=== PATIENT | female | born 1950 | race Two or more races ===

== ENCOUNTER 2018-04-03 06:04 | Inpatient (IN) | payer OTHER ==
[~2018-04-03] VITALS: Ht 157.5 cm; Wt 83.9 kg
[2018-04-03 08:45] VITALS: BP 141/62
[2018-04-03] MEDS ORDERED: TEMAZEPAM 15 MG CAPSULE PO PRN (10:15)
[2018-04-03] MEDS ORDERED: MAGNESIUM HYDROXIDE 30 ML LIQUID UDC PO PRN (10:15)
[2018-04-03] MEDS ORDERED: HYDROCODONE/APAP 5-325MG TABLET PO PRN (10:15)
[2018-04-03] MEDS ORDERED: ONDANSETRON 4 MG/2 ML VIAL IV PRN (10:15)
[2018-04-03] MEDS ORDERED: Z GUARD REMEDY PASTE 57 GM TUBE TOP PRN (10:15)
[2018-04-03] MEDS ORDERED: MORPHINE SULFATE 2 MG/1 ML DISP.SYRIN IV PRN (10:15)
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
[2018-04-03] MEDS: IV D5 1/2 NS 1000 ML 1,000 ML IV PRN (11:45)
[2018-04-03] MEDS ORDERED: CLONIDINE HCL 0.1 MG TABLET PO PRN (11:45)
[2018-04-03 11:55] VITALS: BP 122/46
[2018-04-03] MEDS ORDERED: SUCR1TAB PO (13:04)
[2018-04-03] MEDS ORDERED: HYDR25TA4 PO (13:04)
[2018-04-03] MEDS ORDERED: BENA20TA9 PO (13:04)
[2018-04-03] MEDS: MORPHINE SULFATE 4 MG/1 ML DISP.SYRIN IV PRN ×2 (13:49→18:24)
[2018-04-03 15:41] VITALS: BP 112/43
[2018-04-03] MEDS: ASPIRIN 81 MG TAB.CHEW PO SCH (18:21)
[2018-04-03 19:00] VITALS: BP 123/43
[2018-04-03] MEDS: DOCUSATE SODIUM 100 MG CAPSULE PO SCH (20:56)
[2018-04-04] VITALS: BP 112/44
[2018-04-04] MEDS: IV D5 1/2 NS 1000 ML 1,000 ML IV PRN (00:10)
[2018-04-04] MEDS: MORPHINE SULFATE 4 MG/1 ML DISP.SYRIN IV PRN ×4 (00:17→22:11)
[2018-04-04 04:00] VITALS: BP 114/44
[2018-04-04 06:29] LABS: BASOPHILS # (AUTO) 0.1 K/uL (0.0-8.0); BASOPHILS % (AUTO) 0.6 % (0.0-2.0); EOSINOPHILS # (AUTO) 0.1 K/uL (0.0-0.7); EOSINOPHILS % (AUTO) 1.3 % (0.0-7.0); HEMATOCRIT 32.9 % (31.2-41.9); HEMOGLOBIN 11.2 g/dL (10.9-14.3); LYMPHOCYTES # (AUTO) 1.6 K/uL (20.0-40.0); LYMPHOCYTES % (AUTO) 16.8 % (20.5-51.5); MEAN CORPUSCULAR HGB CONC 34 g/dL (32.3-35.6); MEAN CORPUSCULAR VOLUME 91.6 fL (75.5-95.3); MONOCYTES # (AUTO) 0.8 K/uL (2.0-10.0); MONOCYTES % (AUTO) 8.4 % (0.0-11.0); NEUTROPHILS # (AUTO) 6.8 K/uL (1.8-8.9); NEUTROPHILS % (AUTO) 72.9 % (38.5-71.5); PLATELET COUNT (AUTO) 201 K/uL (179-408); WHITE BLOOD COUNT (AUTO) 9.3 K/uL (3.8-11.8)
--- NOTE | 2018-04-04 06:36 | NUR ---
END OF SHIFT REPORT PATIENT RESTED WELL IN BETWEEN CARE; NO ACUTE DISTRESS; C/O PAIN AND MEDICATED ACCORDINGLY; VSS, AFEBRILE, DAUGHTER AT BEDSIDE; PT NPO FR MIDNIGHT; PATIENT FOR NUCLEAR STRESS TEST; PICKED UP ALREADY BY AMBULANCE;
[2018-04-04 06:54] LABS: BILIRUBIN,TOTAL 0.6 mg/dL (0.2-1.0); CREATININE 0.7 mg/dL (0.6-1.3); MAGNESIUM 2.1 mg/dL (1.8-2.4); PHOSPHOROUS 3.2 mg/dL (2.5-4.9); POTASSIUM 4.1 mmol/L (3.5-5.1); TOTAL PROTEIN, SERUM 6.2 g/dL (6.4-8.2)
[2018-04-04] MEDS ORDERED: REGADENOSON 0.4 MG/5 ML PREFILLED SYR IV ONE ×2 (09:00→09:49)
[2018-04-04] MEDS: ASPIRIN 81 MG TAB.CHEW PO SCH (09:00)
[2018-04-04] MEDS: PANTOPRAZOLE SODIUM 40 MG VIAL IV SCH (09:00)
[2018-04-04] MEDS ORDERED: METOCLOPRAMIDE HCL 10 MG/2 ML VIAL IV ONE (10:14)
[2018-04-04] MEDS ORDERED: SEVOFLURANE 250 ML BOTTLE IH ONE (10:14)
[2018-04-04] MEDS ORDERED: CEFAZOLIN 1 G VIAL MC ONE (10:14)
[2018-04-04] MEDS ORDERED: ONDANSETRON 4 MG/2 ML VIAL IV ONE (10:14)
[2018-04-04] MEDS ORDERED: IV LACTATED RINGERS SOLUTION 1,000 ML BAG IV ONE (10:14)
[2018-04-04] MEDS ORDERED: PROPOFOL 200 MG/20 ML BOTTLE IV ONE (10:14)
[2018-04-04] MEDS ORDERED: POLYMYXIN B SULFATE 500,000 UNITS, BACITRACIN 50,000 UNITS, NORMAL SALINE 20 ML MC ONE ×3 (10:15)
--- NOTE | 2018-04-04 11:11 | NUR ---
PT ARRIVED FROM [facility].POST STRESS TEST. PT APPEARS CALM, NO SIGNS OF RESPIRATORY DISTRESS, DENIES PAIN AT THIS TIME. AOX4, NOT AMBULATORY AT THIS TIME. CONTINUE TO MONITOR PT.
[2018-04-04 11:22] VITALS: BP 125/45
[2018-04-04] MEDS ORDERED: MIDAZOLAM HCL 2 MG/2 ML VIAL ONE (16:01)
[2018-04-04] MEDS ORDERED: FENTANYL CITRATE 250 MCG/5 ML AMPUL ONE (16:01)
[2018-04-04] MEDS ORDERED: SUCCINYLCHOLINE CHLORIDE 200 MG/10 ML VIAL ONE (16:02)
[2018-04-04] MEDS ORDERED: METOCLOPRAMIDE HCL 10 MG/2 ML VIAL ONE (16:02)
[2018-04-04] MEDS: SUCRALFATE 1 G TABLET PO SCH (16:30)
[2018-04-04] MEDS ORDERED: BENAZEPRIL HCL 20 MG TABLET PO SCH (17:00)
[2018-04-04] MEDS ORDERED: FENTANYL CITRATE 100 MCG/2 ML AMPUL ONE (17:48)
[2018-04-04 18:41] VITALS: BP 133/43
--- NOTE | 2018-04-04 18:50 | NUR ---
PT ARRIVED FROM SURGERY, NO SIGNS OF RESPIRATORY DISTRESS, CALM, RESTING IN BED, C/O PAIN 5/10 BUT STATES SHE DOESN'T NEED MORPHINE AT THIS TIME. PT INCISION SITES ARE CLEAN, NO SWELLING. CONTINUE TO MONITOR PT.
[2018-04-04 18:53] VITALS: BP 137/44
[2018-04-04 19:00] VITALS: BP 121/38
[2018-04-04] MEDS: DOCUSATE SODIUM 100 MG CAPSULE PO SCH ×2 (21:00→22:15)
[2018-04-04] MEDS: BENAZEPRIL HCL 10 MG TABLET PO SCH ×2 (21:00→22:18)
[2018-04-04] MEDS: IV D5W-0.45% NS +20 KCL 1,000 ML IV PRN (21:07)
[2018-04-04] MEDS: CEFAZOLIN 1 G in PREMIXED 1 EACH IV SCH (23:50)
[2018-04-05] VITALS: BP 113/37
[2018-04-05 04:00] VITALS: BP 119/43
[2018-04-05] MEDS: MORPHINE SULFATE 4 MG/1 ML DISP.SYRIN IV PRN ×3 (05:48→13:50)
[2018-04-05 06:48] LABS: BASOPHILS % (AUTO) 0.4 % (0.0-2.0); EOSINOPHILS % (AUTO) 0.2 % (0.0-7.0); HEMATOCRIT 28.8 % (31.2-41.9); HEMOGLOBIN 9.9 g/dL (10.9-14.3); LYMPHOCYTES # (AUTO) 1.3 K/uL (20.0-40.0); LYMPHOCYTES % (AUTO) 11.3 % (20.5-51.5); MEAN CORPUSCULAR HEMOGLOBIN 31.9 uug (24.7-32.8); MEAN CORPUSCULAR HGB CONC 34 g/dL (32.3-35.6); MEAN CORPUSCULAR VOLUME 92.9 fL (75.5-95.3); MONOCYTES # (AUTO) 1.1 K/uL (2.0-10.0); MONOCYTES % (AUTO) 9.6 % (0.0-11.0); NEUTROPHILS % (AUTO) 78.5 % (38.5-71.5); PLATELET COUNT (AUTO) 165 K/uL (179-408); WHITE BLOOD COUNT (AUTO) 11.5 K/uL (3.8-11.8)
[2018-04-05 06:52] LABS: CREATININE 0.6 mg/dL (0.6-1.3); POTASSIUM 4.3 mmol/L (3.5-5.1)
--- NOTE | 2018-04-05 06:53 | NUR ---
END OF SHIFT REPORT Patient rested well in between care; no acute distress; c/o pain and medicated accordingly; dressing to right hip c/d/i; incentive spirometer instructed hourly; continue to monitor; continue plan of care.
--- NOTE | 2018-04-05 07:30 | NUR ---
RECEIVED PATIENT LAYING IN BED, AWAKE ALERT AND ORIENTED. YORUBA SPEAKER. DAUGHTER AT BEDSIDE. PATIENT REPORTS PAIN AT A TOLERABLE LEVEL. PATIENT IS ON 2L OF OXYGEN VIA NASAL CANNULA. NO SIGNS OF DISTRESS NOTED. WILL CONTINUE TO MONITOR. BED IN LOW POSITION, CALL LIGHT WITHIN REACH.
--- NOTE | 2018-04-05 08:00 | NUR ---
PATIENT ON TELE SINUS RHYTHM 82. PATIENT RESTING IN BED, IN NO DISTRESS, FAMILY AT BEDSIDE.
[2018-04-05] MEDS: SUCRALFATE 1 G TABLET PO SCH ×3 (08:33→15:47)
[2018-04-05] MEDS: CEFAZOLIN 1 G in PREMIXED 1 EACH IV SCH (08:34)
[2018-04-05] MEDS: ASPIRIN 81 MG TAB.CHEW PO SCH (08:34)
[2018-04-05] MEDS: HYDROCHLOROTHIAZIDE 25 MG TABLET PO SCH ×2 (08:35→10:17)
[2018-04-05] MEDS: BENAZEPRIL HCL 10 MG TABLET PO SCH (08:35)
[2018-04-05] MEDS: PANTOPRAZOLE SODIUM 40 MG VIAL IV SCH (08:35)
--- NOTE | 2018-04-05 08:45 | NUR ---
PATIENT REFUSING LAB DRAW. PATIENT EDUCATION PROVIDED BUT PATIENT STILL REFUSED AND STATED "I DON'T CARE, NO MORE NEEDLES". SON AVE WILL STOP BY AT NOON TO TRY TO CONVINCE HIS FATHER TO AGREE WITH GETTING HIS LAB WORK DONE. Addendum: 04/05/18 at 1303 by ALONSO POWERS RN DISREGARD NOTES ABOVE. INCORRECT PATIENT
[2018-04-05] MEDS ORDERED: BISACODYL 5 MG TABLET.DR PO ONE (09:30)
[2018-04-05] MEDS: IV D5W-0.45% NS +20 KCL 1,000 ML IV PRN (15:22)
[2018-04-05 15:23] VITALS: BP 106/37
--- NOTE | 2018-04-05 18:21 | NUR ---
PATIENT LAYING IN BED, ON 2L OF OXYGEN VIA NASAL CANNULA. NO DISTRESS NOTED. PAIN IS AT A TOLERABLE LEVEL AT THE MOMENT. PAIN INCREASES UPON SWITCHING POSITIONS OR BED CHANGES. PREMEDICATE BEFORE GETTING UP FOR PT. FAMILY AT BEDSIDE. BED IN LOW POSITION, CALL LIGHT WITHIN REACH.
[2018-04-05 20:00] VITALS: BP 114/40
--- NOTE | 2018-04-05 20:03 | NUR ---
Patient lying on bed . Awake . Able to make needs known . Daughter at bedside . On 2 liters O2 with nasal canula .Tolerated well . No SOB , No distress noted .IV site intact on D5 1/2 NS with K at 75cc/hr.running well . Frequent checks closely monitor . Call lights and other belongings within reach at all times . All needs met and anticipated.
[2018-04-05] MEDS: DOCUSATE SODIUM 100 MG CAPSULE PO SCH (20:40)
[2018-04-05] MEDS: ENOXAPARIN SODIUM 40 MG/0.4 ML DISP.SYRIN SQ SCH (20:42)
[2018-04-06] MEDS: MORPHINE SULFATE 4 MG/1 ML DISP.SYRIN IV PRN ×2 (04:20→09:33)
[2018-04-06] MEDS: ACETAMINOPHEN 325 MG TABLET PO PRN ×3 (04:22→16:58)
--- NOTE | 2018-04-06 04:29 | NUR ---
Patient complained of Rt Hip severe pain rate 10/26 . Turn and reposition . Morphine 4mg/1ml IV given prn as ordered . Temp of 100.0 .Cooling measures rendered .Tylenol 325 mg 2 tablet 650 mg. prn. given for fever as ordered . Will monitor .
[2018-04-06] MEDS: IV D5W-0.45% NS +20 KCL 1,000 ML IV PRN ×2 (04:51→18:51)
[2018-04-06 05:29] VITALS: BP 114/47
[2018-04-06 06:03] LABS: BASOPHILS # (AUTO) 0.1 K/uL (0.0-8.0); BASOPHILS % (AUTO) 0.4 % (0.0-2.0); EOSINOPHILS # (AUTO) 0.1 K/uL (0.0-0.7); EOSINOPHILS % (AUTO) 0.9 % (0.0-7.0); HEMATOCRIT 25.8 % (31.2-41.9); HEMOGLOBIN 8.8 g/dL (10.9-14.3); LYMPHOCYTES # (AUTO) 1.2 K/uL (20.0-40.0); LYMPHOCYTES % (AUTO) 10.2 % (20.5-51.5); MEAN CORPUSCULAR HEMOGLOBIN 31.1 uug (24.7-32.8); MEAN CORPUSCULAR HGB CONC 34 g/dL (32.3-35.6); MEAN CORPUSCULAR VOLUME 90.8 fL (75.5-95.3); MONOCYTES % (AUTO) 8.8 % (0.0-11.0); NEUTROPHILS # (AUTO) 9.5 K/uL (1.8-8.9); NEUTROPHILS % (AUTO) 79.7 % (38.5-71.5); PLATELET COUNT (AUTO) 157 K/uL (179-408); RED BLOOD CELL COUNT(AUTO) 2.85 MIL/uL (3.63-4.92); WHITE BLOOD COUNT (AUTO) 11.9 K/uL (3.8-11.8)
[2018-04-06 06:14] LABS: CREATININE 0.6 mg/dL (0.6-1.3); POTASSIUM 3.9 mmol/L (3.5-5.1)
[2018-04-06] MEDS: PANTOPRAZOLE SODIUM 40 MG TABLET.DR PO SCH (06:22)
[2018-04-06] MEDS: SUCRALFATE 1 G TABLET PO SCH ×3 (07:18→16:58)
[2018-04-06] MEDS: BENAZEPRIL HCL 10 MG TABLET PO SCH (09:00)
[2018-04-06] MEDS ORDERED: HYDROCHLOROTHIAZIDE 25 MG TABLET PO SCH (09:00)
[2018-04-06] MEDS: HYDROCHLOROTHIAZIDE 12.5 MG CAPSULE PO SCH (09:00)
--- NOTE | 2018-04-06 09:04 | NUR ---
bp med held for low pressure. Loco mechanical developer prover at bedside, aware of hold med.daughter fidel at bedside, aware of med not given, use of is and take fluids well, discussed with patient, verbalized understanding.
--- NOTE | 2018-04-06 10:00 | NUR ---
is use and leg exercise discussed for post op teaching, verbalized understanding.
--- NOTE | 2018-04-06 11:00 | NUR ---
roman catheter changed per protocol, roman catheter leaking
[2018-04-06 11:44] VITALS: BP 109/32
--- NOTE | 2018-04-06 11:45 | NUR ---
reliief from pain right hip verbalized
--- NOTE | 2018-04-06 12:00 | NUR ---
repositioned on back for lunch, tolerating well. sleeping on and off.
--- NOTE | 2018-04-06 14:00 | NUR ---
sleeping comfortably. daughter at bedside, supportive of patient care.
[2018-04-06 15:52] VITALS: BP 111/48
--- NOTE | 2018-04-06 16:00 | NUR ---
another daughter for assistance. appreciative of care. slept most of the time.
--- NOTE | 2018-04-06 20:00 | NUR ---
RECEIVED PATIENT AWAKE IN BED WITH DAUGHTER AT BEDSIDE. PATIENT IS A/O X4, TOGOLESE SPEAKING BUT ABLE TO MAKE SIMPLE NEEDS KNOWN. DAUGHTER AT BEDSIDE TO TRANSLATE TO MOTHER. PATIENT DENIES NEED FOR ANY PAIN MEDICATION AT THIS TIME. C/O MILD PAIN BUT TOLERABLE AT THIS TIME. VS WNL. IVF INFUSING WELL. ON O2 2L NC SATING WELL. CALL LIGHT IN REACH. ALL NEEDS ATTENDED. WILL CONTINUE TO MONITOR.
[2018-04-06 20:03] VITALS: BP 122/40
[2018-04-06] MEDS: ENOXAPARIN SODIUM 40 MG/0.4 ML DISP.SYRIN SQ SCH (21:00)
[2018-04-06] MEDS: DOCUSATE SODIUM 100 MG CAPSULE PO SCH (21:00)
--- NOTE | 2018-04-06 22:00 | NUR ---
DRESSING NOTED TO RIGHT HIP, SATURATED WITH SANGUINEOUS FLUID. MARINO INTACT, SLIGHT REDNESS NOTED AROUND TOP MARINO. BLOOD CLOT NOTED TO AFFECTED AREA. CLOT IS CAUGHT IN THE STAPLE AND UNABLE TO REMOVE. PATIENT C/O PAIN. NOTIFIED CERTIFIED WELLNESS PROGRAM MANAGER. DRESSING ALSO NOTED TO RIGHT LATERAL LOWER THIGH, SMALL BLOT CLOT ALSO NOTED. WILL NOTIFY DR. BALLARD FOR FURTHER ORDERS. ALL NEEDS ATTENDED.
--- NOTE | 2018-04-06 22:30 | NUR ---
DR DALAL NOTIFIED. PICTURES TAKEN. WILL CONTINUE TO MONITOR AND ASSESS.
[2018-04-06] MEDS: HYDROCODONE/APAP 10-325 MG TABLET PO PRN (23:08)
--- NOTE | 2018-04-07 05:00 | NUR ---
PATIENT AWAKE IN BED. C/O PAIN IN RIGHT HIP. PATIENT GIVEN NORCO 1 TAB PO PRN FOR PAIN. PATIENT WAS PREVIOUSLY GIVEN NORCO AND IT WAS EFFECTIVE FOR HER. DRESSINGS NOTED TO RIGHT HIP, LATERAL LOWER THIGH, SATURATED WITH SEROUS FLUID. INCISION SITE CLEANED AND NEW DRY STERILE DRESSINGS APPLIED. IVF INFUSING WELL. DAUGHTER PRESENT AT BEDSIDE. BED ALARM ON. CALL LIGHT IN REACH. ALL NEEDS ATTENDED. WILL CONTINUE TO MONITOR AND ASSESS.
[2018-04-07] MEDS: HYDROCODONE/APAP 10-325 MG TABLET PO PRN ×2 (05:04→17:00)
[2018-04-07 05:30] VITALS: BP 133/39
[2018-04-07] MEDS: PANTOPRAZOLE SODIUM 40 MG TABLET.DR PO SCH (06:10)
[2018-04-07] MEDS: IV D5W-0.45% NS +20 KCL 1,000 ML IV PRN ×2 (06:11→19:52)
[2018-04-07 06:53] LABS: BASOPHILS # (AUTO) 0.1 K/uL (0.0-8.0); BASOPHILS % (AUTO) 0.5 % (0.0-2.0); EOSINOPHILS # (AUTO) 0.2 K/uL (0.0-0.7); HEMOGLOBIN 9.6 g/dL (10.9-14.3); LYMPHOCYTES # (AUTO) 1.4 K/uL (20.0-40.0); LYMPHOCYTES % (AUTO) 13.3 % (20.5-51.5); MEAN CORPUSCULAR HEMOGLOBIN 31.4 uug (24.7-32.8); MEAN CORPUSCULAR HGB CONC 34 g/dL (32.3-35.6); MEAN CORPUSCULAR VOLUME 91.5 fL (75.5-95.3); MONOCYTES # (AUTO) 0.9 K/uL (2.0-10.0); MONOCYTES % (AUTO) 8.6 % (0.0-11.0); NEUTROPHILS # (AUTO) 7.8 K/uL (1.8-8.9); NEUTROPHILS % (AUTO) 75.6 % (38.5-71.5); PLATELET COUNT (AUTO) 188 K/uL (179-408); RED BLOOD CELL COUNT(AUTO) 3.06 MIL/uL (3.63-4.92); WHITE BLOOD COUNT (AUTO) 10.3 K/uL (3.8-11.8)
[2018-04-07 07:02] LABS: CREATININE 0.5 mg/dL (0.6-1.3); MAGNESIUM 1.9 mg/dL (1.8-2.4); POTASSIUM 3.9 mmol/L (3.5-5.1)
--- NOTE | 2018-04-07 07:30 | NUR ---
ON BED, RESTING. DRESSING RIGHT THIGH CLEAN AND DRY, NO NOTED BLEEDING, GOOD PEDAL PULSE. PATIENT DENIES ANY CHEST PAIN OR DISCOMFORT. DAUGHTER AT BEDSIDE, SUPPORTIVE OF PATIENT CARE.
[2018-04-07] MEDS: SUCRALFATE 1 G TABLET PO SCH ×3 (08:30→16:59)
[2018-04-07] MEDS: BENAZEPRIL HCL 10 MG TABLET PO SCH (08:30)
[2018-04-07] MEDS: HYDROCHLOROTHIAZIDE 12.5 MG CAPSULE PO SCH (08:31)
[2018-04-07] MEDS: MORPHINE SULFATE 4 MG/1 ML DISP.SYRIN IV PRN (08:55)
--- NOTE | 2018-04-07 09:00 | NUR ---
SEEN BY FELICITA MOISE. MADE NOTES AND WILL NOTIFY DR FERGUSON OF INCISION SITE.
--- NOTE | 2018-04-07 09:11 | NUR ---
PT HERE FOR EXERCISE AND AMBULATION, AWARE OF BLEEDING RIGHT THIGH LAST NIGHT. PLACED PATIENT ON HOLD TILL SEEN BY DR FERGUSON AND REQUESTED BY FELICITA MOISE. PATIENT AND DAUGHTER AWARE AND AGREED.
--- NOTE | 2018-04-07 09:45 | NUR ---
LEFT MESSAGE FOR DR FERGUSON REGARDING BLEEDING FROM INCISION AND DRESSING CHANGES. AWAITING RETURN CALL
--- NOTE | 2018-04-07 11:30 | NUR ---
REPOSITIONED TO LEFT SIDE WITH PILLOW, TOLERATED WELL. VERBALIZED COMFORT ON SIDE. DRESSING CHANGE DUE TO BLEED KNEE INCISION, NO FURTHER BLEEDING FOR NOW.
[2018-04-07 11:48] VITALS: BP 121/42
--- NOTE | 2018-04-07 12:25 | NUR ---
RESTING WELL. NO DISCOMFORT VERBALIZED
--- NOTE | 2018-04-07 13:01 | NUR ---
SEEN BY DR FERGUSON, DRESSING CHANGED. NO NEW ORDER. Addendum: 04/07/18 at 1302 by RODNEY LUGO RN SLOUGH CLOTS REMOVED PER DR FERGUSON.
[2018-04-07 15:01] VITALS: BP 123/46
--- NOTE | 2018-04-07 16:53 | NUR ---
RECHECKED TEMP 100.1, FLUIDS GIVEN , IS USE UP 2500ML. REINFORCED. TURNED TO LEFT SIDE WITH PILLOW SUPPORT
[2018-04-07] MEDS: ACETAMINOPHEN 325 MG TABLET PO PRN (19:43)
--- NOTE | 2018-04-07 19:45 | NUR ---
PATIENT AWAKE IN BED WITH FAMILY AT BEDSIDE. PATIENT IS A/O X4. MALAY SPEAKING. TEMPERATURE OF 100.2 NOTED. PATIENT GIVEN TYLENOL 650MG PO PRN FOR ELEVATED TEMP. ALL OTHER VSS. IVF INFUSING WELL TO RIGHT HAND #20 GAUGE. DRESSINGS NOTED TO RIGHT HIP, UPPER AND LOWER THIGH, C/D/I. NO DRAINAGE NOTED. NEUROVASCULAR CHECKS WNL. SENSATION AND PULSES PRESENT. ON O2 2L NC SATING WELL. ON AIR MATTRESS. DVT PUMPS IN PLACE. F/C STILL PRESENT, INTACT AND DRAINING CLEAR, YELLOW URINE. CALL LIGHT IN REACH. BED ALARM ON. ALL NEEDS ATTENDED, WILL CONTINUE TO MONITOR.
[2018-04-07 20:30] VITALS: BP 132/44
[2018-04-07] MEDS: DOCUSATE SODIUM 100 MG CAPSULE PO SCH (20:45)
[2018-04-07] MEDS: ENOXAPARIN SODIUM 40 MG/0.4 ML DISP.SYRIN SQ SCH (20:45)
--- NOTE | 2018-04-07 21:00 | NUR ---
AFEBRILE AT THIS TIME. FAMILY AT BEDSIDE. ALL NEEDS ATTENDED. WILL CONTINUE TO MONITOR AND ASSESS.
[2018-04-08 04:22] VITALS: BP 139/55
--- NOTE | 2018-04-08 05:15 | NUR ---
PATIENT AWAKE IN BED. C/O PAIN. GIVEN MORPHINE 4MG IV PER RN FOR PAIN AND TYLENOL 650MG PO PRN FOR LOW GRADE TEMP. ALL OTHER VSS. SLEPT WELL. CALL LIGHT IN REACH. ALL NEEDS ATTENDED. WILL CONTINUE TO MONITOR.
[2018-04-08] MEDS: ACETAMINOPHEN 325 MG TABLET PO PRN (05:16)
[2018-04-08] MEDS: MORPHINE SULFATE 4 MG/1 ML DISP.SYRIN IV PRN ×2 (05:17→09:08)
[2018-04-08] MEDS: PANTOPRAZOLE SODIUM 40 MG TABLET.DR PO SCH (06:05)
--- NOTE | 2018-04-08 06:48 | NUR ---
PATIENT SLEEPING. NO S/S OF PAIN OR DISCOMFORT. NO FACIAL GRIMACE NOTED. CALL LIGHT IN REACH. ALL NEEDS ATTENDED. WILL CONTINUE TO MONITOR.
[2018-04-08 06:49] LABS: CREATININE 0.6 mg/dL (0.6-1.3)
[2018-04-08] MEDS: SUCRALFATE 1 G TABLET PO SCH ×3 (08:23→16:32)
[2018-04-08] MEDS: HYDROCHLOROTHIAZIDE 12.5 MG CAPSULE PO SCH (08:23)
[2018-04-08] MEDS: BENAZEPRIL HCL 10 MG TABLET PO SCH (08:24)
[2018-04-08 08:47] LABS: BASOPHILS # (AUTO) 0.1 K/uL (0.0-8.0); BASOPHILS % (AUTO) 0.7 % (0.0-2.0); EOSINOPHILS # (AUTO) 0.3 K/uL (0.0-0.7); EOSINOPHILS % (AUTO) 2.9 % (0.0-7.0); HEMATOCRIT 25.8 % (31.2-41.9); LYMPHOCYTES # (AUTO) 1.3 K/uL (20.0-40.0); LYMPHOCYTES % (AUTO) 14.9 % (20.5-51.5); MEAN CORPUSCULAR HEMOGLOBIN 32.2 uug (24.7-32.8); MEAN CORPUSCULAR HGB CONC 35 g/dL (32.3-35.6); MEAN CORPUSCULAR VOLUME 92.5 fL (75.5-95.3); MONOCYTES # (AUTO) 0.8 K/uL (2.0-10.0); MONOCYTES % (AUTO) 8.7 % (0.0-11.0); NEUTROPHILS # (AUTO) 6.6 K/uL (1.8-8.9); NEUTROPHILS % (AUTO) 72.8 % (38.5-71.5); PLATELET COUNT (AUTO) 217 K/uL (179-408); RED BLOOD CELL COUNT(AUTO) 2.79 MIL/uL (3.63-4.92)
[2018-04-08] MEDS: IV D5W-0.45% NS +20 KCL 1,000 ML IV PRN (09:08)
--- NOTE | 2018-04-08 09:20 | NUR ---
NAPIER CATHETER REMOVED. PT PRE MEDICATED FOR PHYSICAL THERAPY. PT IS AOX4, CALM, COOPERATIVE. DAUGHTER AT BEDSIDE.
[2018-04-08 12:00] VITALS: BP 112/45
[2018-04-08 12:01] VITALS: BP 112/45
[2018-04-08 16:00] VITALS: BP 128/39
--- NOTE | 2018-04-08 18:03 | NUR ---
PATIENT IS RESTING WELL. HAD NO SIGNS OF ACUTE DISTRESS THROUGHOUT SHIFT. PATIENT RECEIVED PHYSICAL THERAPY THIS MORNING AND TOLERATED WELL, WAS ABLE TO TAKE SIDE STEPS DURING PHYSICAL THERAPY. DAUGHTER ENCOURAGED HER TO USE INCENTIVE SPIROMETER. ADMINISTERED ALL MEDICATIONS ORDERED. NO COMPLAINTS OF SOB. INSERTED NEW IV ON THE RIGHT WRIST #22 GAUGE, INTACT AND PATENT WITH IVF RUNNING. SAFETY MEASURES GIVEN. DAUGHTER AT BED SIDE.
[2018-04-08 20:06] VITALS: BP 117/70
[2018-04-08] MEDS: DOCUSATE SODIUM 100 MG CAPSULE PO SCH (20:20)
[2018-04-08] MEDS: ENOXAPARIN SODIUM 40 MG/0.4 ML DISP.SYRIN SQ SCH (20:20)
[2018-04-08] MEDS: HYDROCODONE/APAP 10-325 MG TABLET PO PRN (20:21)
--- NOTE | 2018-04-08 20:30 | NUR ---
PATIENT AWAKE, RESTING IN BED WITH FAMILY AT BEDSIDE. PATIENT C/O PAIN INN RIGHT HIP. GIVEN NORCO 1 TAB PO PRN FOR PAIN. VSS. AFEBRILE. IVF INFUSING WELL TO RIGHT HAND #20 GAUGE. DRESSING NOTED TO SURGERY SITES, C/D/I. ON AIR MATTRESS. BED ALARM ON. CALL LIGHT IN REACH. ALL NEEDS ATTENDED. WILL CONTINUE TO MONITOR AND ASSESS.
[2018-04-09 04:00] VITALS: BP 138/50
[2018-04-09] MEDS: ACETAMINOPHEN 325 MG TABLET PO PRN ×2 (04:49→21:45)
--- NOTE | 2018-04-09 05:02 | NUR ---
PATIENT HAS TEMPERATURE 100.2. PATIENT GIVEN TYLENOL 650MG PO PRN FOR TEMP. WILL CONTINUE TO MONITOR.
[2018-04-09] MEDS: IV D5W-0.45% NS +20 KCL 1,000 ML IV PRN ×2 (05:53→20:00)
[2018-04-09] MEDS: PANTOPRAZOLE SODIUM 40 MG TABLET.DR PO SCH (06:22)
--- NOTE | 2018-04-09 06:29 | NUR ---
RECHECKED PATIENTS TEMPERATURE. AFEBRILE, 98.7. WILL CONTINUE TO MONITOR AND ASSESS.
--- NOTE | 2018-04-09 07:20 | NUR ---
RECEIVED PT LYING IN BED. NO SIGNS OF ACUTE DISTRESS. IVF RUNNING ON THE RIGHT WRIST. BED IS LOW AND LOCKED, CALL LIGHT WITHIN REACH. SAFETY MEASURES INITIATED. WILL CONTINUE TO MONITOR.
[2018-04-09 07:24] LABS: BASOPHILS # (AUTO) 0.1 K/uL (0.0-8.0); BASOPHILS % (AUTO) 0.6 % (0.0-2.0); EOSINOPHILS # (AUTO) 0.2 K/uL (0.0-0.7); EOSINOPHILS % (AUTO) 1.8 % (0.0-7.0); HEMOGLOBIN 8.9 g/dL (10.9-14.3); LYMPHOCYTES # (AUTO) 1.6 K/uL (20.0-40.0); LYMPHOCYTES % (AUTO) 15.1 % (20.5-51.5); MEAN CORPUSCULAR HEMOGLOBIN 32.5 uug (24.7-32.8); MEAN CORPUSCULAR HGB CONC 36 g/dL (32.3-35.6); MEAN CORPUSCULAR VOLUME 91.7 fL (75.5-95.3); MONOCYTES # (AUTO) 0.9 K/uL (2.0-10.0); MONOCYTES % (AUTO) 8.9 % (0.0-11.0); NEUTROPHILS # (AUTO) 7.7 K/uL (1.8-8.9); NEUTROPHILS % (AUTO) 73.6 % (38.5-71.5); PLATELET COUNT (AUTO) 254 K/uL (179-408); RED BLOOD CELL COUNT(AUTO) 2.73 MIL/uL (3.63-4.92); WHITE BLOOD COUNT (AUTO) 10.5 K/uL (3.8-11.8)
[2018-04-09 07:37] LABS: CREATININE 0.6 mg/dL (0.6-1.3); POTASSIUM 3.8 mmol/L (3.5-5.1)
[2018-04-09 07:55] VITALS: BP 127/41
[2018-04-09] MEDS: BENAZEPRIL HCL 10 MG TABLET PO SCH (08:19)
[2018-04-09] MEDS: HYDROCHLOROTHIAZIDE 12.5 MG CAPSULE PO SCH (08:19)
[2018-04-09] MEDS: SUCRALFATE 1 G TABLET PO SCH ×3 (08:23→16:55)
[2018-04-09] MEDS: HYDROCODONE/APAP 10-325 MG TABLET PO PRN ×3 (08:50→20:11)
[2018-04-09 12:00] VITALS: BP 107/37
[2018-04-09 16:08] VITALS: BP 111/66
--- NOTE | 2018-04-09 18:18 | NUR ---
PT RESTED WELL THROUGHOUT SHIFT WITH FAMILY AT BEDSIDE. PHYSICAL THERAPY WAS DONE TODAY AND PT TOLERATED WELL. HAD NO S/S OF ACUTE DISTRESS. NORCO WAS GIVEN FOR PAIN AND WAS EFFECTIVE. ALL MEDICATIONS WERE GIVEN ORDERED. WAS SEEN AND EXAMINED BY HOT MILL SHEARER. SAFETY MEASURES GIVEN.
--- NOTE | 2018-04-09 19:20 | NUR ---
RECEIVED PATIENT LYING IN BED. AAOX4, [place] SPEAKING. SEVERAL FAMILY MEMBER AT BEDSIDE. IN NO ACUTE DISTRESS. TEMP ORALLY 99.1. COOLING MEASURE PROVIDED. COMPLAINED ON PAIN ON RIGHT HIP, WILL PROVIDED PAIN MEDICATION PER ORDER. INCISION SITE ON RIGHT HIP COVER WITH MEPILEX. SAFETY MEASURE INITIATED AND CALL DRAPER WITHIN REACH.
[2018-04-09 19:45] VITALS: BP 119/52
[2018-04-09] MEDS: DOCUSATE SODIUM 100 MG CAPSULE PO SCH (20:00)
[2018-04-09] MEDS: ENOXAPARIN SODIUM 40 MG/0.4 ML DISP.SYRIN SQ SCH (20:01)
[2018-04-10 03:50] VITALS: BP 139/55
--- NOTE | 2018-04-10 05:23 | NUR ---
AAOX4, NEPALESE SPEAKING. DAUGHTER AT BEDSIDE. IN NO ACUTE DISTRESS. AFEBRILE. NORCO PRN PER ORDER GIVEN FOR COMPLAIN OF PAIN ON RIGHT HIP AND EFFECTIVE. INCISION SITE ON RIGHT HIP COVER WITH MEPILEX. SAFETY MEASURE MAINTAINED AND CALL DRAPER WITHIN REACH.
[2018-04-10] MEDS: SUCRALFATE 1 G TABLET PO SCH ×3 (06:23→17:30)
[2018-04-10] MEDS: PANTOPRAZOLE SODIUM 40 MG TABLET.DR PO SCH (06:23)
--- NOTE | 2018-04-10 07:00 | NUR ---
AAOX4, [place] SPEAKING. DAUGHTER AT BEDSIDE. IN NO ACUTE DISTRESS. AFEBRILE NOW. INCISION SITE ON RIGHT HIP COVER WITH MEPILEX. SAFETY MEASURE MAINTAINED AND CALL DRAPER WITHIN REACH. PLAN OF CARE DISCUSSED
[2018-04-10] MEDS: BENAZEPRIL HCL 10 MG TABLET PO SCH (08:50)
[2018-04-10] MEDS: HYDROCODONE/APAP 10-325 MG TABLET PO PRN ×2 (08:51→13:21)
[2018-04-10] MEDS: HYDROCHLOROTHIAZIDE 12.5 MG CAPSULE PO SCH (08:51)
[2018-04-10] MEDS: MORPHINE SULFATE 4 MG/1 ML DISP.SYRIN IV PRN ×2 (10:11→18:52)
[2018-04-10] MEDS: IV D5W-0.45% NS +20 KCL 1,000 ML IV PRN (11:21)
[2018-04-10 12:00] VITALS: BP 98/37
[2018-04-10] MEDS ORDERED: HYDR-4354 PO (15:21)
[2018-04-10] MEDS ORDERED: PANT40TA2 PO (15:21)
[2018-04-10] MEDS ORDERED: ENOX40DI SQ (15:21)
[2018-04-10] MEDS ORDERED: CLON0.1T14 PO (15:21)
[2018-04-10] MEDS ORDERED: BENA10TA9 PO (15:21)
[2018-04-10] MEDS ORDERED: HYDR12.517 PO (15:21)
[2018-04-10 16:00] VITALS: BP 120/40
[2018-04-10 19:42] VITALS: BP 119/47
--- NOTE | 2018-04-10 20:00 | NUR ---
received report that patient is being d/c'd. patient is a/o x4. georgian speaking. family at bedside. vss. patient denies pain at this time. dressings noted to right hip, c/d/i. bed alarm on. call light in reach. all needs attended. will continue to monitor and assess.
[2018-04-10] MEDS: DOCUSATE SODIUM 100 MG CAPSULE PO SCH (20:33)
[2018-04-10] MEDS: ACETAMINOPHEN 325 MG TABLET PO PRN (20:33)
[2018-04-10] MEDS: ENOXAPARIN SODIUM 40 MG/0.4 ML DISP.SYRIN SQ SCH (20:34)
--- NOTE | 2018-04-10 21:00 | NUR ---
patient left facility in stable condition via ambulance. daughter at side. all needs attended.
== END 2018-04-10 21:00 | DRG 308 ==
LOC: MED 09:05 → TELE 16:35 → MED 04-05 17:45
PROVIDERS: ADMIT Nurse Practitioner Acute Care; ATTEND Nurse Practitioner Acute Care
PROC: 0QS606Z Reposition Right Upper Femur with Intramedullary Internal Fixation Device, Open Approach (ICD-10-PCS; principal; 2018-04-04)
DX: S72.141A Displaced intertrochanteric fracture of right femur, initial encounter for closed fracture (principal); I21.A1 Myocardial infarction type 2; E44.0 Moderate protein-calorie malnutrition; D68.59 Other primary thrombophilia; M41.9 Scoliosis, unspecified; E86.0 Dehydration; Z68.33 Body mass index [BMI] 33.0-33.9, adult; S72.121A Displaced fracture of lesser trochanter of right femur, initial encounter for closed fracture; I11.9 Hypertensive heart disease without heart failure; E66.9 Obesity, unspecified; W18.30XA Fall on same level, unspecified, initial encounter; Y93.E8 Activity, other personal hygiene; Y92.018 Other place in single-family (private) house as the place of occurrence of the external cause; Z71.3 Dietary counseling and surveillance; Z90.49 Acquired absence of other specified parts of digestive tract; Z90.710 Acquired absence of both cervix and uterus; I70.0 Atherosclerosis of aorta; E16.2 Hypoglycemia, unspecified
CPT/HCPCS: 36415; 70030-TC; 73503; 83735; 84100; 85025; 85610; 85730; 93005; 93307; 97110; 97116; 97530; A4649; A9502; C1769; C9113; G0378; J0330; J0690; J1650; J2250; J2270; J2405; J2765; J2785; J3010; J3490; J7040; J7120